=== PATIENT | female | born 1970 | race Caucasian/White ===

== ENCOUNTER 2019-02-09 03:14 | Emergency (ER) | payer BC ==
[~2019-02-09] VITALS: Ht 157.5 cm; Wt 53.1 kg
[~2019-02-09 03:14] MED LIST: CETI-101 PO; ESZO2TAB22 PO; SER25 PO
[2019-02-09 03:20] VITALS: BP_SYST 122
--- NOTE | 2019-02-09 03:30 | NUR ---
Placed in room 3 . Placed on color television console monitor, blood pressure machine and pulse oximeter. To gown for exam. Side rails up. Report given to Sanjay TOMLINSON.
--- NOTE | 2019-02-09 03:30 | NUR ---
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 Pt states that she followed the directions on the supplement bottles and not the instructions per PMD. She states that she used 30 gtts/bottle instead of the 5 gtts/bottle as prescribed. She started the supplements 2 nights ago and took 15 gtts in the AM and 15 gtts in the afternoon.
--- NOTE | 2019-02-09 03:40 | NUR ---
Further information provided by patient regarding the supplements taken. The 3 supplements are: apo-HEPAT, RENELIX, ITIRES. Pt states that 15 gtts of each bottle of supplements were taken on Saturday at midnight, 0900, and 1900.
--- NOTE | 2019-02-09 03:45 | NUR ---
Dr. Trent at bedside to assess pt.
[2019-02-09] MEDS ORDERED: NACL 0.9% 1,000 ML IV ONE (04:00)
--- NOTE | 2019-02-09 04:40 | NUR ---
# 20 gauge angiocath placed to RAC. Use of asceptic technique. Opsite placed over site. Blood return noted. Blood for lab drawn from site. Flushed with 10 cc of normal saline. No evidence of infiltration noted. Patient tolerated well.
[2019-02-09 05:09] LABS: BILIRUBIN,URINE NEGATIVE (NEGATIVE); BLOOD, URINE NEGATIVE (NEGATIVE); CLARITY/URINE CLEAR (CLEAR); COLOR,URINE YELLOW (YELLOW); GLUCOSE,URINE NEGATIVE (NEGATIVE); KETONES,URINE NEGATIVE (NEGATIVE); LEUKOCYTE ESTERASE ,URINE NEGATIVE (NEGATIVE); NITRITE, URINE NEGATIVE (NEGATIVE); PH,URINE 8.5 (5.0-8.0); PROTEIN URINE NEGATIVE (NEGATIVE); UROBILINOGEN,URINE 0.2 (0.2-1.0)
[2019-02-09 05:11] LABS: BASOPHILS % (AUTO) 0.6 % (0.0-2.0); EOSINOPHILS # (AUTO) 0.3 K/uL (0.0-0.4); EOSINOPHILS % (AUTO) 3.4 % (0.0-4.0); HEMATOCRIT 39.1 % (36-48); HEMOGLOBIN 13.1 g/dL (12.0-16.0); LYMPHOCYTES # (AUTO) 2.1 K/uL (1.0-5.5); LYMPHOCYTES % (AUTO) 28.3 % (20.5-51.5); MEAN CORPUSCULAR HEMOGLOBIN 32 pg (27-31); MEAN CORPUSCULAR HGB CONC 34 % (32-36); MEAN CORPUSCULAR VOLUME 94 fL (79.0-98.0); MONOCYTES # (AUTO) 0.7 K/uL (0.0-1.0); MONOCYTES % (AUTO) 8.9 % (1.7-9.3); NEUTROPHILS # (AUTO) 4.4 K/uL (1.8-7.7); NEUTROPHILS % (AUTO) 58.8 % (40.0-70.0); PLATELET COUNT (AUTO) 200 K/uL (130-430); RED BLOOD CELL COUNT(AUTO) 4.15 MIL/uL (4.2-6.2); WHITE BLOOD COUNT (AUTO) 7.5 K/uL (4.8-10.8)
--- NOTE | 2019-02-09 05:13 | NUR ---
Spoke with Isaiah, Pharmacist with [facility]. She states that homeopathic medications typically do not have antidotes and are safe since they are 4-12x diluted. Per Isaiah, no further side effects should be expected especially since it has been 10 hours since last dose. She states that the three herbal supplements (apo-HEPAT, RENELIX, and ITIRES) have 20-30 different ingredients and that it will take time to research them. She states that she will call back within an hour to provide further information regarding potential side effects. Dr. Trent and pt notified of conversation. Addendum: 02/09/19 at 0610 by [email or web address] Called Poison Control at [phone]. Spoke with Isaiah, Pharmacist with reference number: [id number].
[2019-02-09 05:16] LABS: CALCIUM 8.6 mg/dL (8.4-11.0); CREATININE 0.67 mg/dL (0.55-1.30); POTASSIUM 3.9 mmol/L (3.5-5.1)
[2019-02-09 05:22] LABS: ALBUMIN 3.6 g/dL (3.4-4.8); TOTAL BILIRUBIN 0.4 mg/dL (0.0-1.0)
--- NOTE | 2019-02-09 05:30 | NUR ---
Pt inquires if she can be discharged prior to call back from poison control. Dr. Trent notified and suggests that pt should remain in ER for monitoring. Pt informed and states that she just wants to go home. Explained to pt that she would need to sign an AMA form. Pt requests to speak to Dr. Trent prior to making a decision.
--- NOTE | 2019-02-09 05:45 | NUR ---
Dr. Trent at bedside to inform pt that he recommends that pt stay for observation. Pt states that she just wants to go home and rest. Pt agrees to sign out AMA.
[2019-02-09] MEDS ORDERED: ONDANSETRON 4 MG ODT TAB PO ONE (06:00)
[2019-02-09] MEDS ORDERED: ONDANSETRON 4 MG ODT TAB ONE (06:02)
--- NOTE | 2019-02-09 06:09 | NUR ---
Isaiah from [facility] calls back and states that since the supplements are so diluted, side effects aren't expected. She states that N/V/D may be expected if the actual plant matter is consumed. Isaiah states that data regarding these supplements is limited and that pt should speak with her PMD regarding doses. Dr. Trent and pt notified.
--- NOTE | 2019-02-09 06:18 | NUR ---
Pt signs AMA form.
[2019-02-09 06:35] VITALS: BP_SYST 102
--- NOTE | 2019-02-09 06:35 | NUR ---
Patient does not wish to proceed with medical care recommended by Dr. Trent. Patient given information related to possible complications, up to and including , which could occur as a result of leaving hospital at this time. Patient verbalizes understanding of risks involved leaving against medical advice. Patient has signed AMA form. Patient given written and verbal discharge instructions and verbalizes understanding. ER MD discussed with patient the results and treatment provided. Patient in stable condition. ID arm band removed. IV catheter removed intact and dressing applied, no active bleeding. Rx of Zofran given. Patient educated on pain management and to follow up with PMD. Pain Scale 4/10, pain medications offered, but refused. Opportunity for questions provided and answered. Medication side effect fact sheet provided.
== END 2019-02-09 06:35 | disposition left against medical advice (07) ==
LOC: SED 03:14
DX: R10.13 Epigastric pain (principal); R11.10 Vomiting, unspecified; R19.7 Diarrhea, unspecified; Z79.899 Other long term (current) drug therapy
CPT/HCPCS: 36415; 80053; 81003; 81025; 83690; 84703; 85025; 93005; 96360; 99284; J7030; Q0162